=== PATIENT | male | born 1985 | race Hispanic/Latino ===

== ENCOUNTER 2023-10-01 15:45 | Emergency (ER) | payer OTHER, BC, SELFPAY ==
[2023-10-01 16:09] VITALS: BP 135/94
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
[2023-10-01] MEDS: MOTRIN 400 MG PO (17:17)
== END 2023-10-01 17:22 | disposition home or self-care (01) ==
LOC: EMR 15:45
PROVIDERS: EMERGENCY PHYSICIAN Student in an Organized Health Care Education/Training Program
DX: S80.12XA Contusion of left lower leg, initial encounter (principal); V89.2XXA Person injured in unspecified motor-vehicle accident, traffic, initial encounter; R03.0 Elevated blood-pressure reading, without diagnosis of hypertension
CPT/HCPCS: 99283

== ENCOUNTER 2025-01-12 23:26 | Inpatient (IN) | payer BC, SELFPAY ==
[2025-01-12 17:52] VITALS: BP 137/80
[2025-01-12 20:46] VITALS: BMI 29.3
[2025-01-12 20:54] LABS: % Basophils 0.4 % (0-2); % Eosinophils 1.3 % (0-6); % Immature Granulocytes 0.2 % (0-0.5); % Lymphocytes 24.1 % (20.5-51.1); % Monocytes 7.7 % (1.7-9.3); % Neutrophils 66.3 % (42.2-75.2); Absolute Eosinophils 0.1 10^3/uL (0-0.7); Absolute Monocytes 0.6 10^3/uL (0.1-0.6); Absolute Neutrophils 5.4 10^3/uL (1.4-6.5); Hematocrit 41.8 % (39.0-52.0); Hemoglobin 14.7 g/dL (13.0-18.0); Mean Corp Hgb Conc. 35.2 g/dL (33.0-37.0); Mean Corpuscular Hgb 29.3 pg (27.0-31.0); Mean Corpuscular Volume 83.3 fL (80.0-94.0); Mean Platelet Volume 9.4 fL (7.4-10.4); Nucleated Red Blood Cells % 0 % (-); Platelet Count 247 10^3/uL (130-400); Red Blood Cell Count 5.02 10^6/uL (4.70-6.10); Red Cell Dist. Width 12.8 % (11.5-14.5); White Blood Cell Count 8.2 10^3/uL (4.8-10.8)
[2025-01-12 21:06] LABS: ALT (SGPT) 19 U/L (0-50); AST (SGOT) 31 U/L (17-59); Alkaline Phosphatase 77 U/L (38-126); Blood Urea Nitrogen 9 mg/dl (9-20); Calcium 9.5 mg/dl (8.4-10.2); Carbon Dioxide 25 mmol/L (22-30); Chloride 105 mmol/L (98-107); Estimated Creatinine Clearance 103 ml/min; Glucose 100 mg/dl (70-99); Potassium 4.7 mmol/L (3.5-5.1); Sodium 138 mmol/L (135-145); Total Bilirubin 0.5 mg/dl (0.2-1.3); Total Protein 8.1 g/dl (6.3-8.2); eGFR > 60.00
[2025-01-12] MEDS: VANCOCIN 540 MG IV (21:37)
--- NOTE | 2025-01-12 21:54 | ED.SKININJ ---
HPI-Injury
General
Chief Complaint: Skin Problem
Source: patient
Exam Limitations: none
Time Seen by Provider: 01/12/25 20:03
Nursing documentation reviewed up to this point in time: agreed with
History of Present Illness-Injury
Is this injury a work related problem?: No
Is pt an associate of [facility]?: No
Initial Injury comments:
Patient to ED for eval of skin abscesses on right dorsal middle finger and left lateral elbow Symptoms started approx 1 week ago. States he squeezed them and they became worse. He was placed on Keflex and Bactrim by PCP 2 days ago. States the
redness o on right hand has decreased but the ascesses continue to grow. Now drainging. Denies fever/chlls. Brought self to ED for eval.
Past History
Past History
ED Past Medical History: None
Review of Systems
Review of Systems
Allergies reviewed?: Yes
All Other Systems: ROS reviewed and negative except as documented in HPI and ROS
Constitutional: Reports no symptoms
EENT: Reports no symptoms
Respiratory: Reports no symptoms
Cardiac: Reports no symptoms
ABD/GI: Reports no symptoms
Musculoskeletal: Reports no symptoms
Skin: Reports other (skin abscess left lateral elbow and right dorsal 3rd finger.)
Neurological: Reports no symptoms
Psychiatric: Reports no symptoms
Skin Exam
Abscess
Right Dorsal Third Finger:
Description of abscess: draining
Surrounding skin:: inflammed at abscess site
Left Lateral Elbow:
Description of abscess: draining
Surrounding skin:: inflammed at abscess site
Phy Exam
General Physical Exam
General Presentation: well appearing and no apparent distress
General age: appears stated age
General Skin: warm and dry
General Habitus: normal
General Mental: alert
Musculoskeletal Exam
Musculoskeletal Exam: full ROM and neuro vasc intact
Skin Exam
Skin Exam: normal color, warm/dry and no rash
Psychiatric Exam
Psychiatric Exam: normal mood/affect
Course
Orders/Labs/Results
Orders:
Orders
01/12/25 20:17
Elbow, Left [CR Elbow - Left Min 3 Views ] Urgent
Comment:
Reason For Exam: cellulitis
Finger(s)/Thumb 2 View Rt [CR Finger(s)/thumb Min 2 Vw Rt] Urgent
Comment:
Reason For Exam: abscess/cellulitis
01/12/25 20:22
Vancomycin [Vancocin] 2,000 mg 0.9% Sodium Chloride 500 ml [Nss] 500 ml IV NOW
01/12/25 20:41
Complete Blood Count/With Diff Urgent
Comprehensive Metabolic Panel Urgent
Wound Culture [Wound/Abscess/Other Culture] Urgent
EMILIANA Source: Elbow
Specimen Description: Left
Date Specimen was Collected: 01/12/25
Time Specimen was Collected: 20:27
Wound Culture [Wound/Abscess/Other Culture] Urgent
EMILIANA Source: Finger
Specimen Description: Right
Date Specimen was Collected: 01/12/25
Time Specimen was Collected: 20:27
01/12/25 22:58
Admit/Transfer Patient As Directed
Co-Sign Provider:
Level of Care: Inpatient admission
Assign to:: Medical/Surgical
Physician / Group: [facility]
Diagnosis: Abscess / Cellulitis
Reason for Hospitalization: Abscess / Cellulitis
Expected length of stay greater than two midnights?: Yes
ELOS- Estimated Length of Stay in days: 2
I certify the patient meets the requirements for IP care: Yes
PRN Pain Medication Management As Directed
May give lesser potent ordered pain med per pt: Yes
preference::
Protocol:: Medication orders for pain may be administered in a
manner that supports deferring to patient preference
when the pt is:
- Requesting an ordered lesser potent pain medication.
Least to most potent pain medications are defined
as: acetaminophen < NSAID < tramadol < opioids
(morphine, oxycodone, hydromorphone).
- Requesting a lesser dose of the same medication IF
ORDERED.
- Requesting a less intrusive route of administration
if both routes are prescribed by the provider (PO <
IV).
01/12/25 22:59
Code Status As Directed
Resuscitation Status: Full Code
01/12/25 23:00
Flush (0.9% Sodium Chloride) [Flush (Nss)] See Dose Instructions IV PER PROTOCOL
01/13/25 01:56
Acetaminophen [Tylenol] 650 mg PO Q4HPRN PRN
Ketorolac [Toradol] 15 mg IV Q6HPRN PRN
01/13/25 01:56
ORTHOPEDIC CONSULT Routine
Consulting Provider: Cedric Neumann
Was physician already notified: Yes
Reason for consult: Abscess / Cellulitis
Activity As Directed
Activity Level: Ambulate
I/O [Intake/ Output] As Directed
Frequency: Per unit guidelines
Pneumatic Compression Sleeves As Directed
Type: Knee high
Vital Signs As Directed
Frequency: Per unit guidelines
Oxygen Therapy [O2 Therapy] [RESP] Routine
Titrate/Wean O2 to maintain O2 sat greater than (%): 94
DX Deep Vein Thrombosis Video Routine
01/13/25 02:31
Blood Culture Q30M
EMILIANA Source: Blood/Venous
Specimen Description:
01/13/25 03:23
Blood Culture Q30M
EMILIANA Source: Blood/Venous
Specimen Description:
01/13/25 Breakfast
Regular
At Your Request: Full Participation
01/13/25 08:49
Basic Metabolic Panel IN AM
Complete Blood Count/No Diff IN AM
Abnormal Lab Results
01/12/25
20:41
Glucose 100 H mg/dl
(70-99)
01/12/25 20:41
01/12/25 20:41
Vital Signs
Initial and Last Documented VS:
Initial Vital Signs
Temp Pulse Resp BP Pulse Ox
98.4 F 82 18 137/80 97
01/12/25 17:52 01/12/25 17:52 01/12/25 17:52 01/12/25 17:52 01/12/25 17:52
Last Documented Vital Signs
Temp Pulse Resp BP Pulse Ox
98.2 F 63 18 121/73 97
01/14/25 15:20 01/14/25 15:20 01/14/25 15:20 01/14/25 15:20 01/14/25 15:20
*Radiology
Radiology exam reviewed: radiology read reviewed
*Pulse Oximetry
Patient hypoxic: no
*Critical Care Note
Total Time (30-74mins, 75-104mins- exclusive of procedures): Not Applicable
ED Attending Note
-
Portions of this chart may have been created with voice recognition software.� Occasional wrong word or��sound alike� substitutions may have occurred due to the inherent limitations of voice recognition software.
Discharge Plan
Departure
Patient Disposition: Admit
Date of Disposition: 01/12/25
Time of Disposition: 21:59
Presentation/result/management discussed w/ accepting MD/DO: Hospitalist
Patient with high blood pressure during this ER visit?: No
Condition: Fair
Covid-19: Not Applicable
Discharge Problem:
Abscess of skin
Interventions
Interventions:
*Risk Screen - Suicide Last Done: 01/13/25 02:23
*General Assessment Last Done: 01/12/25 17:52
*Neglect/Abuse Screening Last Done: 01/12/25 17:52
*ED- Fall Risk Assessment Last Done: 01/13/25 01:45
*ED COVID-19 Vaccine History Last Done: 01/13/25 02:23
*Nursing Disposition Last Done: 01/13/25 01:45
ED-Skin Assessment Last Done: 01/12/25 23:10
Discharge Date and Time
Discharge Date/Time: 01/13/25 01:45
[2025-01-12 22:49] VITALS: BP 115/70
--- NOTE | 2025-01-12 23:05 | HPS.HSE ---
Family Physician
-
Family Physician: Naseem Valdes
Chief Complaint
-
Abscesses
History of Present Illness
Patient is a 39y M with no significant PMH who presents to ED complaining of pain, swelling and discharge from the R 3rd finger and the L elbow. Patient states that he initially developed small 'pimples' in these areas on Wednesday. Areas were
itchy and swollen and progressed rapidly to become more swollen and painful. Patient squeezed the lesions and obtained some clear / bloody drainage. They have since become even more swollen and painful. Pos drainage of bloody material.
Patient denies any systemic complaints such as fevers / chills / etc.
He denies any prior history of skin abscesses, etc.
Patient was seen by his PCP two days ago and started on Bactrim and Keflex. He has noted no improvement thus far with these medications.
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 He otherwise does not known of any injuries to the affected areas or other exposures.
Medical History
Past Medical History
Past Medical History: Reports None
Past Surgical History: Reports None
Social History
Tobacco: Non-smoker
Alcohol: None
Drug: None
Family History
Family History: Other (Mother: DM Father: CHF)
Allergies / Home Medications
Allergies reflects when Allergies were last updated in [employer].
Home Medications with original date entered in [employer]
Allergy/Medication List:
Allergies
Allergy/AdvReac Type Severity Reaction Status Date / Time
No Known Allergies Allergy Verified 10/01/23 16:15
Home Medications
cephalexin 500 mg capsule 500 mg PO BID 01/12/25
ibuprofen 800 mg tablet 800 mg PO Q8HPRN PRN MILD PAIN 01/12/25
sulfamethoxazole 800 mg-trimethoprim 160 mg tablet (Bactrim DS) 1 tab PO BID 01/12/25
Review of Systems
-
History Source: Patient
A 12 point ROS was completed and negative except as noted: Yes
Constitutional: Denies Fever or Chills
Respiratory: Denies Cough or Trouble Breathing
Cardiac: Denies Chest Pain or Palpitations
Abdomen/GI: Denies Abdominal Pain, Nausea, Vomiting or Diarrhea
: Denies Dysuria or Frequency
Musculoskeletal: Reports Joint Pain and Joint Swelling; Denies Edema
Neurological: Denies Dizzy or Headache
Physical Exam
Vital Signs
Vital Signs
Temp Pulse Resp BP Pulse Ox
98.4 F 67 15 115/70 97
01/12/25 17:52 01/12/25 22:49 01/12/25 22:49 01/12/25 22:49 01/12/25 22:49
Physical Exam
General: Other (39y M in no acute distress.)
HEENT: Moist mucous membranes
Respiratory: Clear; No Wheezes, Rales or Rhonchi
Cardiac: S1/S2 and Regular Rhythm; No Murmur
GI: Soft, Non Tender, Non Distended and Normal Bowel Sounds
Musculoskeletal: Other (Swelling / erythema / edema / serosanguinous drainage from R 3rd PCP joint. Similar / less severe skin changes lateral aspect of the L elbow. Normal ROM of the elbow. Decreased ROM R 3rd finger due to swelling.)
Neuro: AO x 3
Laboratory Results
-
01/12/25 20:41
01/12/25 20:41
Laboratory Results
Total Bilirubin 0.5 mg/dl (0.2-1.3) 01/12/25 20:41
AST 31 U/L (17-59) 01/12/25 20:41
ALT 19 U/L (0-50) 01/12/25 20:41
Alkaline Phosphatase 77 U/L (38-126) 01/12/25 20:41
Impression/Plan
-
A/P: Patient is a 39y M with no significant PMH who presents to ED complaining of pain, swelling and drainage from skin lesions on the R hand and L elbow.
Cellulitis / Abscesses
- Admit for further evaluation and treatment.
- No response to outpatient abx.
- Continue IV Vancomycin for now.
- Supportive care including pain control.
- Ortho evaluation for additional recommendations.
- Follow for clinical improvement.
DVT Prophylaxis: SCDs
Code Status: Full
[2025-01-12 23:32] VITALS: BP 120/73
[2025-01-13 02:00] VITALS: BP 138/82; BMI 30.8
[2025-01-13] MEDS: TORADOL 15 MG IV ×2 (02:44→10:11)
[2025-01-13 08:10] VITALS: BP 124/53
[2025-01-13 09:03] LABS: Hematocrit 40.2 % (39.0-52.0); Hemoglobin 13.8 g/dL (13.0-18.0); Mean Corp Hgb Conc. 34.3 g/dL (33.0-37.0); Mean Corpuscular Hgb 29.3 pg (27.0-31.0); Mean Corpuscular Volume 85.4 fL (80.0-94.0); Mean Platelet Volume 9.2 fL (7.4-10.4); Platelet Count 227 10^3/uL (130-400); Red Blood Cell Count 4.71 10^6/uL (4.70-6.10); Red Cell Dist. Width 12.7 % (11.5-14.5); White Blood Cell Count 5.6 10^3/uL (4.8-10.8)
--- NOTE | 2025-01-13 09:30 | PHA.VAN.IN ---
Assessment
- Assessment
Renal Function: Unknown baseline
AUC Dosing Plan
- Empiric Dosing
Initial / Loading Dose: 2000MG 01/12
Maintenance Regimen: 1000MG Q12H
Estimated AUC (mcg*h/mL): 490
Estimated Peak (mcg*h/mL): 31.6
Estimated Trough (mcg/ml): 12.1
Estimated Half Life (H): 7.9
- Monitoring
No levels ordered at this time: CONSIDER NEXT FEW DAYS
MRSA Screen: Ordered per protocol
Pharmacokinetics Vancomycin I
- -
Patient Age: 39
Patient Sex: Male
Vancomycin Day #: 1
Indication: Skin And Soft Tissue
Requesting Provider: Dr. Granados
Pertinent Antimicrobial Allergies:
nkda
Height / Weight:
Height 5 ft 4 in
Actual Weight 81.306 kg
- Vital Signs / Lab Results
Temp Pulse Resp BP Pulse Ox
98.1 F 66 18 124/53 95
01/13/25 08:10 01/13/25 08:10 01/13/25 08:10 01/13/25 08:10 01/13/25 08:10
Lab Results - Hematology
01/12/25 01/13/25
20:41 08:49
WBC 8.2 5.6
Lab Results - Chemistry
01/12/25
20:41
BUN 9
Creatinine 0.9
Estimated Creat Clear 103
Albumin 5.0
[2025-01-13 09:36] LABS: Blood Urea Nitrogen 10 mg/dl (9-20); Calcium 9.2 mg/dl (8.4-10.2); Carbon Dioxide 24 mmol/L (22-30); Chloride 105 mmol/L (98-107); Estimated Creatinine Clearance 105 ml/min; Glucose 163 mg/dl (70-99); Potassium 4.2 mmol/L (3.5-5.1); Sodium 139 mmol/L (135-145); eGFR > 60.00
--- NOTE | 2025-01-13 09:57 | W.PN.UPDATE ---
Update Note
Progress Note Update
Full orthopedic consult dictated: Patient seen with Dr. Neumann.
Dx: Right middle finger infection/cellulitis and left elbow infection/cellulitis
Plan: Recommend continue with antibiotics, dilute Hibiclens soaks right middle finger, K-pad left elbow and observation for now. He will be n.p.o. after midnight and reevaluate in the morning.
--- NOTE | 2025-01-13 10:20 | CM ---
Met w/ patient, initial assessment completed. Patient is a 39y M with no significant PMH who presents to ED complaining of pain, swelling and discharge from the R 3rd finger and the L elbow.
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 Independent w/ ambulating and ADLs, no DME identified. No SNF/HC hx reported.
Address, point of contact and insurance verified
PCP: Naseem Valdes
Pharmacy: [facility]
CM will cont to follow for d/c planning
Plan: Home, no needs
--- NOTE | 2025-01-13 11:05 | W.PN.HOSP.TC ---
Today's Communication/Plan
-
Continue IV vancomycin
Follow-up MRSA
Check A1c
N.p.o. at midnight for possible I&D
Assessment / Plan
Assessment / Plan
#Purulent cellulitis with abscesses
-Suspicion for MRSA; presented with cellulitis and abscess of the third digit right hand and left elbow
-Failed outpatient therapy with Keflex and Bactrim likely due to underlying abscesses
-Was started on vancomycin here, seen by orthopedics who started Hibiclens soak and K-pad
-Blood cultures x 2, MRSA screen, wound and abscess cultures ordered with results pending
-Will continue IV vancomycin, follow-up MRSA screen, trend CBC and temperature curve
-Continue with supportive measures per orthopedics, n.p.o. at midnight for possible I&D tomorrow
-Continue with as needed analgesics and antipyretics
-Check A1c for consideration of underlying polymicrobial infection
DVT prophylaxis: SCDs
Diet: Regular with n.p.o. at midnight
CODE STATUS: Full code
Anticipated Discharge: 24 - 48 hours
Subjective/Interval History
-
Date of Service: January 13, 2025
Seen and examined at the bedside. No acute events reported overnight. AFVSS this morning
No leukocytosis or fevers today. Patient was walking around the room at time of my eval
Denies any fevers or chills, states he has never had history of infections. Denies any other complaints
Objective Data
-
Labs:
Laboratory Results
01/13/25
08:49
WBC 5.6
Hgb 13.8
Hct 40.2
Plt Count 227
Sodium 139
Potassium 4.2
Chloride 105
Carbon Dioxide 24
BUN 10
Creatinine 0.9
Glucose 163 H
Calcium 9.2
Vital Signs:
Vital Signs
Temp Pulse Resp BP Pulse Ox
98.1 F 66 18 124/53 95
01/13/25 08:10 01/13/25 08:10 01/13/25 08:10 01/13/25 08:10 01/13/25 08:10
Review of Systems
-
History Source: Patient
All other systems: Reviewed and negative
Physical Exam
-
General: Well Developed, Well Nourished, No Apparent Distress and Comfortable
HEENT: Normocephalic, Atraumatic, Moist Mucous Membranes and Anicteric
Respiratory: Clear to Auscultation and Non Labored Respirations; Negative Accessory Resp Muscle Use
Cardiac: Regular Rhythm and S1/S2; Negative Murmur, Rub or Gallop
GI: Soft, Nontender, Nondistended, Normal Bowel Sounds and No Hepatosplenomegaly
Musculoskeletal: No Clubbing, No Cyanosis and No Edema
Skin: Warm, Dry and Lesions (Third digit right hand -fluctuant lesion with trace purulence and small amount of oozing. Left elbow with fluctuant lesion and purulent appearing cap)
Neuro: AO x 3 and Nonfocal/Grossly Intact
Psych: Calm
Data Reviewed
-
Labs: Labs Reviewed by me, Discussed with Physician (ortho) and Discussed with Patient
[2025-01-13 11:06] LABS: Glycohemoglobin (HgbA1c) 5.3 % (4.0-5.6)
[2025-01-13 11:30] LABS: Erythrocyte Sed Rate 14 mm/hour (0-20)
[2025-01-13 16:16] VITALS: BP 129/78
[2025-01-13] MEDS: VANCOCIN 200 IV (18:11)
[2025-01-13] MEDS: MELATONIN 5 MG PO (21:55)
[2025-01-13 23:23] VITALS: BP 103/57
[2025-01-14] MEDS: VANCOCIN 200 IV ×2 (06:07→18:15)
[2025-01-14 07:45] VITALS: BP 109/74
[2025-01-14 07:59] LABS: % Basophils 0.9 % (0-2); % Eosinophils 5.8 % (0-6); % Immature Granulocytes 0.5 % (0-0.5); % Monocytes 11.9 % (1.7-9.3); % Neutrophils 39.9 % (42.2-75.2); Absolute Eosinophils 0.3 10^3/uL (0-0.7); Absolute Lymphocytes 1.8 10^3/uL (1.2-3.4); Absolute Monocytes 0.5 10^3/uL (0.1-0.6); Absolute Neutrophils 1.7 10^3/uL (1.4-6.5); Hematocrit 41.3 % (39.0-52.0); Hemoglobin 14.1 g/dL (13.0-18.0); Mean Corp Hgb Conc. 34.1 g/dL (33.0-37.0); Mean Corpuscular Hgb 29.3 pg (27.0-31.0); Mean Corpuscular Volume 85.7 fL (80.0-94.0); Mean Platelet Volume 9.6 fL (7.4-10.4); Nucleated Red Blood Cells % 0 % (-); Platelet Count 241 10^3/uL (130-400); Red Blood Cell Count 4.82 10^6/uL (4.70-6.10); Red Cell Dist. Width 12.6 % (11.5-14.5); White Blood Cell Count 4.3 10^3/uL (4.8-10.8)
[2025-01-14 08:25] LABS: Blood Urea Nitrogen 12 mg/dl (9-20); Calcium 9.3 mg/dl (8.4-10.2); Carbon Dioxide 25 mmol/L (22-30); Chloride 107 mmol/L (98-107); Estimated Creatinine Clearance 118 ml/min; Glucose 109 mg/dl (70-99); Potassium 4.5 mmol/L (3.5-5.1); Sodium 140 mmol/L (135-145); eGFR > 60.00
--- NOTE | 2025-01-14 09:24 | PHA.VAN.FU ---
Addendum entered and electronically signed by Sariah Horn, [facility] 01/14/25 10:54:
Prescriber now Dr Machuca
Original Note:
Vancomycin Assessment / Plan
- Assessment
Renal Function: Stable
WBC's are: Stable
In the past 24 hrs, patient has been: Afebrile
- Dosing Plan
Continue: vanc 1000mg q12
- Monitoring Plan
No level(s) ordered at this time: consider in the upcoming days
- Follow Up
Pharmacy will continue to follow.
Vancomycin Follow UP
- -
Patient Age: 39
Patient Sex: Male
Vancomycin Day #: 1
Indication: Skin And Soft Tissue (abscess on R hand and elbow)
Requesting Provider: Dr. Granados
Pertinent Antimicrobial Allergies:
nkda
Height / Weight:
Height 5 ft 4 in
Actual Weight 81.306 kg
Pertinent Past Medical History: possible I&D 01/14
- Vital Signs / Lab Results
Temp Pulse Resp BP Pulse Ox
98.2 F 59 16 109/74 97
01/14/25 07:45 01/14/25 07:45 01/14/25 07:45 01/14/25 07:45 01/14/25 07:45
Lab Results - Hematology
01/12/25 01/13/25 01/14/25
20:41 08:49 06:54
WBC 8.2 5.6 4.3 L
Lab Results - Chemistry
01/12/25 01/13/25 01/14/25
20:41 08:49 06:54
BUN 9 10 12
Creatinine 0.9 0.9 0.8
Estimated Creat Clear 103 105 118
Albumin 5.0
Microbiology Results
01/13/25 03:24 MRSA Screen - Final
Nose No Methicillin Resistant Staphylococcus aureus isolated.
01/13/25 03:23 Blood Culture - Preliminary
Blood/Venous No Growth in 24 hours- Final report to follow
01/13/25 02:31 Blood Culture - Preliminary
Blood/Venous No Growth in 24 hours- Final report to follow
01/12/25 20:41 Gram Stain - Preliminary
Finger - Right
01/12/25 20:41 Gram Stain - Preliminary
Elbow - Left
--- NOTE | 2025-01-14 10:31 | W.PN.HOSP.TC ---
Today's Communication/Plan
-
Continue IV vancomycin and add Flagyl for anaerobic coverage
Consideration of I&D per orthopedics
Assessment / Plan
Assessment / Plan
#Purulent cellulitis with abscesses
-Suspicion for MRSA; presented with cellulitis and abscess of the third digit right hand and left elbow
-Failed outpatient therapy with Keflex and Bactrim likely due to underlying abscesses
-Was started on vancomycin here, seen by orthopedics who started Hibiclens soak and K-pad
-Blood cultures x 2, MRSA screen, wound and abscess cultures ordered with results pending
-A1c came back at 5.3%; MRSACx from wound (+); clinically improving on vancomycin
-Continue vancomycin and add Flagyl for anaerobic coverage, trend CBC and temp
-Continue with supportive measures per orthopedics,
-Continue with as needed analgesics and antipyretics
-Consideration of I&D per orthopedics
DVT prophylaxis: SCDs
Diet: NPO pending ortho
CODE STATUS: Full code
Anticipated Discharge: 24 - 48 hours
Subjective/Interval History
-
Date of Service: January 14, 2025
Seen and examined at the bedside. No acute events reported overnight. AFVSS
Labs are stable. Improvement to elbow abscess and mild improvement to third digit abscess of right hand. Denies fevers or worsening pain
Denies any new complaints as of this morning
Objective Data
-
Labs:
Laboratory Results
01/14/25
06:54
WBC 4.3 L
Hgb 14.1
Hct 41.3
Plt Count 241
Sodium 140
Potassium 4.5
Chloride 107
Carbon Dioxide 25
BUN 12
Creatinine 0.8
Glucose 109 H
Calcium 9.3
Vital Signs:
Vital Signs
Temp Pulse Resp BP Pulse Ox
98.2 F 59 16 109/74 97
01/14/25 07:45 01/14/25 07:45 01/14/25 07:45 01/14/25 07:45 01/14/25 07:45
I&O
01/13/25 01/14/25 01/15/25
06:59 06:59 06:59
Intake Total 960 / 960
Balance 960 / 960
Review of Systems
-
History Source: Patient
All other systems: Reviewed and negative
Physical Exam
-
General: Well Developed, Well Nourished, No Apparent Distress and Comfortable
HEENT: Normocephalic, Atraumatic, Moist Mucous Membranes and Anicteric
Respiratory: Clear to Auscultation and Non Labored Respirations; Negative Accessory Resp Muscle Use
Cardiac: Regular Rhythm and S1/S2; Negative Murmur, Rub or Gallop
GI: Soft, Nontender, Nondistended and Normal Bowel Sounds
Musculoskeletal: No Clubbing, No Cyanosis and No Edema
Skin: Warm, Dry and Lesions (Left elbow: Improving fluctuant lesion with mild oozing. Right hand: Third digit with fluctuant lesion improved erythema)
Neuro: AO x 3, Nonfocal/Grossly Intact and Central Nerve's Intact; Negative Tremors
Hematologic / Lymphatic: No Lymphadenopathy
Psych: Calm
Data Reviewed
-
Labs: Labs Reviewed by me and Discussed with Patient
[2025-01-14 11:00] LABS: Erythrocyte Sed Rate 15 mm/hour (0-20)
--- NOTE | 2025-01-14 11:17 | W.PN.UPDATE ---
Update Note
Progress Note Update
Patient seen and examined this AM. AVSS. Right third finger with less swelling. Some purulence able to be expressed and when mechanically pushing on the wound, it opened and purulent loculated material was expressed. Patient then soaked. Elbow
somewhat improved today. Cultures positive for MRSA. Continue soaks and IV antibiotics. Will discuss with hand surgery tomorrow.
[2025-01-14] MEDS: FLAGYL 500 MG 100 IV ×2 (11:52→19:59)
[2025-01-14 15:20] VITALS: BP 121/73
[2025-01-14] MEDS: FLUSH (NSS) 1 FLUSH IV (18:16)
[2025-01-14] MEDS: MELATONIN PO ×2 (21:33→22:00)
[2025-01-14 23:07] VITALS: BP 143/94
[2025-01-15] MEDS: FLAGYL 500 MG 100 IV ×2 (03:51→11:45)
[2025-01-15] MEDS: VANCOCIN 200 IV (06:18)
[2025-01-15 07:22] VITALS: BP 122/75
[2025-01-15 09:21] LABS: % Basophils 0.8 % (0-2); % Eosinophils 4.6 % (0-6); % Immature Granulocytes 0.8 % (0-0.5); % Lymphocytes 36.7 % (20.5-51.1); % Monocytes 7.8 % (1.7-9.3); % Neutrophils 49.3 % (42.2-75.2); Absolute Eosinophils 0.2 10^3/uL (0-0.7); Absolute Lymphocytes 1.8 10^3/uL (1.2-3.4); Absolute Monocytes 0.4 10^3/uL (0.1-0.6); Absolute Neutrophils 2.4 10^3/uL (1.4-6.5); Hematocrit 42.1 % (39.0-52.0); Hemoglobin 14.3 g/dL (13.0-18.0); Mean Corpuscular Hgb 29.2 pg (27.0-31.0); Mean Corpuscular Volume 86.1 fL (80.0-94.0); Mean Platelet Volume 9.6 fL (7.4-10.4); Nucleated Red Blood Cells % 0 % (-); Platelet Count 283 10^3/uL (130-400); Red Blood Cell Count 4.89 10^6/uL (4.70-6.10); Red Cell Dist. Width 12.6 % (11.5-14.5); White Blood Cell Count 4.8 10^3/uL (4.8-10.8)
[2025-01-15 09:32] LABS: Erythrocyte Sed Rate 16 mm/hour (0-20)
[2025-01-15 09:39] LABS: Blood Urea Nitrogen 11 mg/dl (9-20); Calcium 9.3 mg/dl (8.4-10.2); Carbon Dioxide 28 mmol/L (22-30); Chloride 106 mmol/L (98-107); Estimated Creatinine Clearance > 125 ml/min; Glucose 102 mg/dl (70-99); Potassium 4.1 mmol/L (3.5-5.1); Sodium 143 mmol/L (135-145); eGFR > 60.00
--- NOTE | 2025-01-15 10:05 | PHA.VAN.FU ---
Vancomycin Assessment / Plan
- Assessment
Renal Function: Stable
WBC's are: WNL
In the past 24 hrs, patient has been: Afebrile
Concomitant Antimicrobials: metronidazole
- Dosing Plan
Adjust Regimen to: Vanc 1250mg Q12H starting at 1800
New Regimen Predicts: AUC (514), Peak (35.4), Trough (11.4)
SCR trending down
Given age - will increase dosing as patient may require increased dosing to achieve therapeutic levels
- Monitoring Plan
No level(s) ordered at this time: consider levels in next few days
- Follow Up
Pharmacy will continue to follow.
Vancomycin Follow UP
- -
Patient Age: 39
Patient Sex: Male
Vancomycin Day #: 2
Indication: Skin And Soft Tissue
Requesting Provider: Dr. Granados
Pertinent Antimicrobial Allergies:
NKDA
Height / Weight:
Height 5 ft 4 in
Actual Weight 81.306 kg
Pertinent Past Medical History: BMI ~31
- Vital Signs / Lab Results
Temp Pulse Resp BP Pulse Ox
98.8 F 60 18 122/75 98
01/15/25 07:22 01/15/25 07:22 01/15/25 07:22 01/15/25 07:22 01/15/25 07:22
Lab Results - Hematology
01/12/25 01/13/25 01/14/25
20:41 08:49 06:54
WBC 8.2 5.6 4.3 L
01/15/25
08:00
WBC 4.8
Lab Results - Chemistry
01/12/25 01/13/25 01/14/25
20:41 08:49 06:54
BUN 9 10 12
Creatinine 0.9 0.9 0.8
Estimated Creat Clear 103 105 118
Albumin 5.0
01/15/25
08:00
BUN 11
Creatinine 0.7
Estimated Creat Clear > 125
Albumin
Microbiology Results
01/12/25 20:41 Wound Culture - Final
Elbow - Left Staph aureus MRSA
Gram Stain - Final
01/12/25 20:41 Wound Culture - Final
Finger - Right Staph aureus MRSA
Gram Stain - Final
01/13/25 03:23 Blood Culture - Preliminary
Blood/Venous No Growth in 48 hours- Final report to follow
01/13/25 02:31 Blood Culture - Preliminary
Blood/Venous No Growth in 48 hours- Final report to follow
01/13/25 03:24 MRSA Screen - Final
Nose No Methicillin Resistant Staphylococcus aureus isolated.
--- NOTE | 2025-01-15 12:27 | W.PN.HOSP.TC ---
Today's Communication/Plan
-
Continue IV vancomycin
N.p.o. at midnight
Possible I&D tomorrow morning
Assessment / Plan
Assessment / Plan
#Purulent cellulitis with abscesses
#MRSA positive wound cultures
-Suspicion for MRSA; presented with cellulitis and abscess of the third digit right hand and left elbow
-Failed outpatient therapy with Keflex and Bactrim likely due to underlying abscesses
-Was started on vancomycin here, seen by orthopedics who started Hibiclens soak and K-pad
-Blood cultures x 2, MRSA screen, wound and abscess cultures ordered with results pending
-A1c came back at 5.3%; MRSACx from wound (+); clinically improving on vancomycin
-Continue vancomycin, trend CBC and temperature curve with inflammatory marker
-Continue with supportive measures; orthopedics to discuss with hand surgery today
-Continue with as needed analgesics and antipyretics
-Consideration of I&D per orthopedics
DVT prophylaxis: SCDs
Diet: NPO at midnight
CODE STATUS: Full code
Anticipated Discharge: 24 - 48 hours
Subjective/Interval History
-
Date of Service: January 15, 2025
Seen and examined at the bedside. No acute events reported overnight. AFVSS this morning
Left elbow abscess with significant improvement, third digit on right hand abscess with mild improvement
Labs stable. Ortho to speak with hand surgery today about approach to treatment
Objective Data
-
Labs:
Laboratory Results
01/15/25
08:00
WBC 4.8
Hgb 14.3
Hct 42.1
Plt Count 283
Sodium 143
Potassium 4.1
Chloride 106
Carbon Dioxide 28
BUN 11
Creatinine 0.7
Glucose 102 H
Calcium 9.3
Vital Signs:
Vital Signs
Temp Pulse Resp BP Pulse Ox
98.8 F 60 18 122/75 98
01/15/25 07:22 01/15/25 07:22 01/15/25 07:22 01/15/25 07:22 01/15/25 07:22
I&O
01/14/25 01/15/25 01/16/25
06:59 06:59 06:59
Intake Total 960 / 960 1700 / 1700
Balance 960 / 960 1700 / 1700
Review of Systems
-
History Source: Patient
All other systems: Reviewed and negative
Physical Exam
-
General: Well Developed, Well Nourished, No Apparent Distress and Comfortable
HEENT: Normocephalic, Atraumatic, Moist Mucous Membranes and Anicteric
Respiratory: Clear to Auscultation and Non Labored Respirations; Negative Accessory Resp Muscle Use
Cardiac: Regular Rhythm and S1/S2; Negative Murmur, Rub or Gallop
GI: Soft, Nontender, Nondistended and Normal Bowel Sounds
Musculoskeletal: No Clubbing, No Cyanosis and No Edema
Skin: Warm, Dry and Lesions (Right hand third digit: Fluctuant lesion with some oozing. Left elbow with improving lesion, no significant fluctuance); Negative Rash
Neuro: AO x 3 and Nonfocal/Grossly Intact
Psych: Calm
Data Reviewed
-
Labs: Labs Reviewed by me and Discussed with Patient
--- NOTE | 2025-01-15 12:34 | WOUNDNOTE ---
R 3RD FINGER
--- NOTE | 2025-01-15 12:35 | WOUNDNOTE ---
NAZIA RN NOTE: Patient admitted with abscess of skin, denies PMH. Reviewed Dr. Neumann's note, patient doing soaks as ordered then dry dressing inbtw. Both R 3rd finger and L elbow now with scant drainage, base red, no induration. + MRSA on wound
culture. Dressings changed using adaptic and dry dressing. Teaching done with patient regarding wound care and bathing precautions with family. Will sign off unless needed.
--- NOTE | 2025-01-15 13:38 | W.PN.UPDATE ---
Update Note
Progress Note Update
Patient seen and examined
He has excellent ROM of the right middle finger
No expressible purulence. Minimal surrounding erythema or warmth
No surgical I&D is needed
I'm ok with switching to oral abx
Continue with warm water Chlorhexidine soaks.
Follow up in the office in 5-7 days
--- NOTE | 2025-01-15 14:51 | CM ---
CM reviewed chart, patient seen bedside, no surgical I&D needed at this time. Patient remains on IV antibiotics. Patient inquiring about billing, will direct patient to billing contact. CM will continue to follow for all discharge planning needs.
Plan; home no needs likely
[2025-01-15 15:01] VITALS: BP 122/78
[2025-01-15] MEDS: VANCOCIN 275 MG IV (18:24)
[2025-01-15] MEDS: MELATONIN PO (22:17)
[2025-01-15 23:01] VITALS: BP 139/84
[2025-01-16] MEDS: VANCOCIN 275 MG IV (05:36)
[2025-01-16 07:27] VITALS: BP 116/78
[2025-01-16 07:44] LABS: % Basophils 0.8 % (0-2); % Eosinophils 6.7 % (0-6); % Immature Granulocytes 1.1 % (0-0.5); % Monocytes 9.1 % (1.7-9.3); % Neutrophils 41.3 % (42.2-75.2); Absolute Eosinophils 0.4 10^3/uL (0-0.7); Absolute Immature Granulocytes 0.1 10^3/uL (0-0.05); Absolute Lymphocytes 2.2 10^3/uL (1.2-3.4); Absolute Monocytes 0.5 10^3/uL (0.1-0.6); Absolute Neutrophils 2.2 10^3/uL (1.4-6.5); Hemoglobin 14.2 g/dL (13.0-18.0); Mean Corp Hgb Conc. 33.8 g/dL (33.0-37.0); Mean Corpuscular Hgb 28.8 pg (27.0-31.0); Mean Corpuscular Volume 85.2 fL (80.0-94.0); Mean Platelet Volume 9.2 fL (7.4-10.4); Nucleated Red Blood Cells % 0 % (-); Platelet Count 265 10^3/uL (130-400); Red Blood Cell Count 4.93 10^6/uL (4.70-6.10); Red Cell Dist. Width 12.5 % (11.5-14.5); White Blood Cell Count 5.3 10^3/uL (4.8-10.8)
[2025-01-16 08:00] LABS: Erythrocyte Sed Rate 13 mm/hour (0-20)
[2025-01-16 08:18] LABS: Blood Urea Nitrogen 14 mg/dl (9-20); Calcium 9.3 mg/dl (8.4-10.2); Carbon Dioxide 28 mmol/L (22-30); Chloride 107 mmol/L (98-107); Estimated Creatinine Clearance 118 ml/min; Glucose 101 mg/dl (70-99); Potassium 4.3 mmol/L (3.5-5.1); Sodium 143 mmol/L (135-145); eGFR > 60.00
--- NOTE | 2025-01-16 11:38 | CM ---
CM reviewed chart, patient seen bedside, for discharge today. Patient inquiring about hospital bill, provided with billing contact information. Patient confirms transportation home, no needs. CM will continue to follow for all discharge planning
needs.
Plan; home no needs.
--- NOTE | 2025-01-16 14:04 | W.PN.HOSP.TC ---
Today's Communication/Plan
-
bactrim
f/u ortho in 5-7 days
wound care
F/u PCP within 1 week
Assessment / Plan
Assessment / Plan
General: Well Developed, Well Nourished, No Apparent Distress and Comfortable
HEENT: Normocephalic, Atraumatic, Moist Mucous Membranes and Anicteric
Respiratory: Clear to Auscultation and Non Labored Respirations; Negative Accessory Resp Muscle Use
Cardiac: Regular Rhythm and S1/S2; Negative Murmur, Rub or Gallop
GI: Soft, Nontender, Nondistended and Normal Bowel Sounds
Musculoskeletal: No Clubbing, No Cyanosis and No Edema
Skin: Warm, Dry and Lesions, open - appears to be healting; Left elbow with improving lesion, no significant fluctuance); Negative Rash
Neuro: AO x 3 and Nonfocal/Grossly Intact
Psych: Calm
#Purulent cellulitis with abscesses
#MRSA positive wound cultures
-Suspicion for MRSA; presented with cellulitis and abscess of the third digit right hand and left elbow
-Abx suboptimal likely due to underlying abscesses
-Self drained on 01/15
-NO indication for drainage as per Ortho
-DC on bactrim as sensitive; did not have appropriate course as of yet especially with abscess that was present
-Wound care
More than 30 minutes spent in discharge including
Final examination of the patient
Summarizing hospital stay
Instructions for continuing care to all relevant caregivers
Preparation of discharge records, prescriptions, and referral forms
Total time spent (in minutes): 36
Anticipated Discharge: Today
Subjective/Interval History
-
Date of Service: January 16, 2025
infection appears to have improved, no purulence
Objective Data
-
Labs:
Laboratory Results
01/16/25
07:11
WBC 5.3
Hgb 14.2
Hct 42.0
Plt Count 265
Sodium 143
Potassium 4.3
Chloride 107
Carbon Dioxide 28
BUN 14
Creatinine 0.8
Glucose 101 H
Calcium 9.3
Vital Signs:
Vital Signs
Temp Pulse Resp BP Pulse Ox
98.8 F 58 18 116/78 99
01/16/25 07:27 01/16/25 07:27 01/16/25 07:27 01/16/25 07:27 01/16/25 07:27
I&O
01/15/25 01/16/25 01/17/25
06:59 06:59 06:59
Intake Total 1699 / 0 1929
Balance 1699 / 1699
Review of Systems
-
History Source: Patient
All other systems: Not reviewed unless documented
Data Reviewed
-
Labs: Labs Reviewed by me and Discussed with Patient
--- NOTE | 2025-01-16 14:12 | W.DS.TRANS ---
DC Summary - [employer]
-
Discharge Instructions:
Discharge Diagnosis/Procedures cellulitis with abscess
Blood Work cbc and bmp in 3-5 days with pcp
Instructions: Excuse from school, work, or physical activity - ED discharge instructions
Stand-Alone Forms:
Changes to Home Medications: Yes
Discharge Medications:
DC Medications w/original date entered in [facility]
ibuprofen 800 mg tablet 800 mg PO Q8HPRN PRN MILD PAIN 01/12/25
sulfamethoxazole 800 mg-trimethoprim 160 mg tablet (Bactrim DS) 1 tab PO BID Infection 10 days #20 tabs 01/16/25
Home Medication Changes
sulfamethoxazole 800 mg-trimethoprim 160 mg tablet (Bactrim DS) 1 tab PO BID Infection 10 days #20 tabs 01/16/25
Pending Results: No
[2025-01-16] MEDS: CLARITIN 10 MG PO (14:47)
[2025-01-16 14:59] VITALS: BP 126/93
--- NOTE | 2025-01-16 16:06 | PHA.VAN.FU ---
Vancomycin Assessment / Plan
- Assessment
Renal Function: Stable
WBC's are: WNL
In the past 24 hrs, patient has been: Afebrile
- Dosing Plan
Continue: Vanc 1250mg Q12H
- Monitoring Plan
No level(s) ordered at this time: discharge plans noted
- Follow Up
Pharmacy will continue to follow.
Vancomycin Follow UP
- -
Patient Age: 39
Patient Sex: Male
Vancomycin Day #: 3
Indication: Skin And Soft Tissue
Requesting Provider: Dr. Granados
Pertinent Antimicrobial Allergies:
NKDA
Height / Weight:
Height 5 ft 4 in
Actual Weight 81.306 kg
Pertinent Past Medical History: BMI ~31
- Vital Signs / Lab Results
Temp Pulse Resp BP Pulse Ox
98.6 F 72 18 126/93 100
01/16/25 14:59 01/16/25 14:59 01/16/25 14:59 01/16/25 14:59 01/16/25 14:59
Lab Results - Hematology
01/14/25 01/15/25 01/16/25
06:54 08:00 07:11
WBC 4.3 L 4.8 5.3
Lab Results - Chemistry
01/14/25 01/15/25 01/16/25
06:54 08:00 07:11
BUN 12 11 14
Creatinine 0.8 0.7 0.8
Estimated Creat Clear 118 > 125 118
Microbiology Results
01/13/25 03:23 Blood Culture - Preliminary
Blood/Venous No Growth in 72 hours- Final report to follow
01/13/25 02:31 Blood Culture - Preliminary
Blood/Venous No Growth in 72 hours- Final report to follow
01/12/25 20:41 Wound Culture - Final
Elbow - Left Staph aureus MRSA
Gram Stain - Final
01/12/25 20:41 Wound Culture - Final
Finger - Right Staph aureus MRSA
Gram Stain - Final
== END 2025-01-16 17:19 | disposition home or self-care (01) | DRG 603 ==
LOC: 4 WEST ACU 23:26
PROVIDERS: Internal Medicine; Nurse Practitioner; ADMITTING PHYSICIAN Hospitalist; ATTENDING PHYSICIAN Internal Medicine; CONSULT PHYSICIAN Orthopaedic Surgery; EMERGENCY PHYSICIAN Emergency Medicine; FAMILY PHYSICIAN Family Medicine
DX: L03.114 Cellulitis of left upper limb (principal); L03.011 Cellulitis of right finger; Z82.49 Family history of ischemic heart disease and other diseases of the circulatory system; Z83.3 Family history of diabetes mellitus; B95.62 Methicillin resistant Staphylococcus aureus infection as the cause of diseases classified elsewhere
CPT/HCPCS: 73080; 73140; 80048; 80053; 83036; 85025; 85027; 85652; 86140; 87040; 87070; 87147; 87186; 87205; 96365; 96366; 99284

== ENCOUNTER 2025-02-24 16:30 | Inpatient (IN) | payer BC, SELFPAY ==
[2025-02-24 12:56] VITALS: BP 136/90
[2025-02-24 13:55] VITALS: BMI 29.8
--- NOTE | 2025-02-24 15:44 | ED.SKININJ ---
HPI-Injury
General
Chief Complaint: Skin Problem
Source: patient
Exam Limitations: none
Time Seen by Provider: 02/24/25 15:17
Nursing documentation reviewed up to this point in time: agreed with
History of Present Illness-Injury
Initial Injury comments:
The patient is a 39-year-old male who presents with an infected lesion on his left buttock, which he initially described as a 'pimple.' The lesion has been significantly worsening over the last three days. During this time, he has experienced a mild
headache, chills, but no confirmed vomiting, although he has felt nausea. The patient was previously seen at an urgent care facility and was prescribed doxycycline 100 mg twice daily starting on February 22. The patient reports that the antibiotic does
not seem to be effective.
He was admitted 01/12 to 01/16 for cellulitis with abscess found to be MRSA right third finger and left elbow
Past History
Past History
ED Past Medical History: None
ED Past Surgical History: None
Social History
Tobacco: Non-smoker
Personal: Single
Living: with roommate
Employment: Employed
Review of Systems
Review of Systems
Allergies reviewed?: Yes
All Other Systems: ROS reviewed and negative except as documented in HPI and ROS
Constitutional: Denies fever
Respiratory: Denies trouble breathing
Cardiac: Denies chest pain
ABD/GI: Reports nausea; Denies abdominal pain or vomiting
: Denies dysuria, frequency or difficulty voiding
Skin: Reports other (infection left buttock)
Phy Exam
Physical Exam
Physical Exam:
GENERAL: No acute distress. A&Ox3.
CONSTITUTIONAL: Afebrile.
EYES: clear, conjunctivae normal
ENMT: moist mucus membranes
RESPIRATORY: Regular respirations, nonlabored, lungs clear.
CARDIOVASCULAR: Regular rate and rhythm, no murmurs, no rubs.
GI: Soft, nontender, normal BS
MUSCULOSKELETAL: Moves with ease. Well perfused.
SKIN: Warm, dry, normal. Tender indurated area left mid buttock with 16 x 16 cm surrounding erythema
PSYCH: Normal mood and affect. Well kept, interactive and appropriate
NEUROLOGIC: Awake, alert and oriented. No focal neurological deficits
Course
Orders/Labs/Results
Orders:
Orders
02/24/25 Dinner
Regular
At Your Request: Full Participation
02/24/25 15:39
Piperacillin/Tazo 3.375 Gram [Zosyn] 3.375 gram in 50 ml IV NOW
02/24/25 15:58
Vancomycin [Vancocin] 2,000 mg 0.9% Sodium Chloride 500 ml [Nss] 500 ml IV NOW
02/24/25 16:03
Admit/Transfer Patient As Directed
Co-Sign Provider:
Level of Care: Inpatient admission
Assign to:: Medical/Surgical
Physician / Group: erik
Diagnosis: left buttock cellulitis/infected pimple
Reason for Hospitalization: left buttock cellulitis/infected pimple
Expected length of stay greater than two midnights?: Yes
ELOS- Estimated Length of Stay in days: 2
I certify the patient meets the requirements for IP care: Yes
PRN Pain Medication Management As Directed
May give lesser potent ordered pain med per pt: Yes
preference::
Protocol:: Medication orders for pain may be administered in a
manner that supports deferring to patient preference
when the pt is:
- Requesting an ordered lesser potent pain medication.
Least to most potent pain medications are defined
as: acetaminophen < NSAID < tramadol < opioids
(morphine, oxycodone, hydromorphone).
- Requesting a lesser dose of the same medication IF
ORDERED.
- Requesting a less intrusive route of administration
if both routes are prescribed by the provider (PO <
IV).
02/24/25 16:04
Code Status As Directed
Resuscitation Status: Full Code
02/24/25 16:20
Complete Blood Count/With Diff Urgent
Comprehensive Metabolic Panel Urgent
02/24/25 16:53
Acetaminophen [Tylenol] 650 mg PO Q4HPRN PRN
VANCOMYCIN Pharmacy to Dose [VANCOCIN Pharmacy to Dose] 1 each Pharmacy To Prepare [Call Pharmacy To Prepare] 0 ml IV PER PROTOCOL
02/24/25 16:53
Activity As Directed
Activity Level: As Tolerated
Vital Signs As Directed
Frequency: Per unit guidelines
DX Deep Vein Thrombosis Video Routine
02/24/25 20:00
Heparin 5,000 units SC Q12
02/25/25 06:00
Complete Blood Count/With Diff IN AM
Comprehensive Metabolic Panel IN AM
02/24/25 16:20
02/24/25 16:20
Vital Signs
Initial and Last Documented VS:
Initial Vital Signs
Temp Pulse Resp BP Pulse Ox
98.4 F 72 18 136/90 99
02/24/25 12:56 02/24/25 12:56 02/24/25 12:56 02/24/25 12:56 02/24/25 12:56
Last Documented Vital Signs
Temp Pulse Resp BP Pulse Ox
98.3 F 65 16 135/77 99
02/24/25 19:49 02/24/25 19:49 02/24/25 19:49 02/24/25 19:49 02/24/25 19:49
Procedures
Incision/Drainage/Joint Aspiration
Left mid buttock:
Anethesia: 1% Lidocaine with Epi
Preparation: cleaned with alcohol wipe
Type of procedure: incise and drain
Nature of site: abscess
Description of abscess: less than 3cm, involved incision and involves one area
How much fluid was obtained?: none
Fluid description: bloody
Treatment: left open for drainage, antibiotics started and bandaid applied
MDM/Problems Addressed
Differential Diagnosis Includes:
Abscess
infected cyst
cellulitis
MRSA
MDM/Problems Addressed:
The patient is a 39-year-old male who presents with an infected lesion on his left buttock, which he initially described as a 'pimple.' The lesion has been significantly worsening over the last three days. During this time, he has experienced a mild
headache, chills, but no confirmed vomiting, although he has felt nausea. The patient was previously seen at an urgent care facility and was prescribed doxycycline 100 mg twice daily starting on February 22. The patient reports that the antibiotic does
not seem to be effective.
He was admitted 01/12 to 01/16 for cellulitis with abscess found to be MRSA right third finger and left elbow
Afebrile, NAD
No significant systemic symptoms.
Attempt to I&D area revealed no purulent drainage, significant surrounding erythema
plan: Admit, IV antibiotics, failing outpatient antibiotic
Hospitalist notified of admission
CBC, CMP pending
*Pulse Oximetry
SaO2: 99
Oxygen Mode of Delivery: Room air
Patient hypoxic: not evaluated
*Critical Care Note
Total Time (30-74mins, 75-104mins- exclusive of procedures): Not Applicable
ED Attending Note
-
Portions of this chart may have been created with voice recognition software.� Occasional wrong word or��sound alike� substitutions may have occurred due to the inherent limitations of voice recognition software.
Discharge Plan
Departure
Patient Disposition: Admit
Date of Disposition: 02/24/25
Time of Disposition: 15:43
Admit to: Med/Surg
Presentation/result/management discussed w/ accepting MD/DO: Hospitalist
Condition: Good
Discharge Problem:
Cellulitis of left buttock
Interventions
Interventions:
*Risk Screen - Suicide Last Done: 02/24/25 12:56
*Neglect/Abuse Screening Last Done: 02/24/25 12:56
*ED- Fall Risk Assessment Last Done: 02/24/25 13:55
*ED COVID-19 Vaccine History Last Done: 02/24/25 13:55
*Nursing Disposition Last Done: 02/24/25 16:43
ED-Skin Assessment Last Done: 02/24/25 15:30
Discharge Date and Time
Discharge Date/Time: 02/24/25 16:43
--- NOTE | 2025-02-24 16:05 | HPS.HSE ---
Family Physician
-
Family Physician: Naseem Valdes
Chief Complaint
-
left butt infection
History of Present Illness
39-year-old male past medical history of MRSA cellulitis with abscesses of hand and left elbow, allergies, presenting with infected lesion on his left buttock. Initially described as a pimple. Lesion has been significantly worsening over the past
3 days. During this time he has had mild headache, chills and subjective fever. He has had nausea without vomiting. Patient was seen in urgent care and prescribed doxycycline twice a day starting 2 days ago. He does not believe the antibiotic
has helped.
He was admitted here for cellulitis with abscess of right hand third digit and left elbow which self drained. Cultures grew MRSA. Treated vancomycin switched to Bactrim.
He states that he has had skin abscesses since childhood.
Denies any drug use. Denies smoking or alcohol.
Medical History
Past Medical History
Past Medical History: Reports Other (MRSA cellulitis with abscesses of hand and left elbow, allergies)
Past Surgical History: Reports None
Social History
Tobacco: Non-smoker
Alcohol: None
Drug: None
Family History
Family History: Not pertinent
Allergies / Home Medications
Allergies reflects when Allergies were last updated in [email or web address].
Home Medications with original date entered in [email or web address]
Allergy/Medication List:
Allergies
Allergy/AdvReac Type Severity Reaction Status Date / Time
No Known Allergies Allergy Verified 02/24/25 12:55
Home Medications
doxycycline hyclate 100 mg capsule 100 mg PO BID 02/24/25
Review of Systems
-
Constitutional: Reports No Symptoms
EENT: Reports No Symptoms
Respiratory: Reports No Symptoms
Cardiac: Reports No Symptoms
Abdomen/GI: Reports No Symptoms
: Reports No Symptoms
Musculoskeletal: Reports No Symptoms
Skin: Reports See HPI
Neurological: Reports No Symptoms
Endocrine: Reports No Symptoms
Hematologic/Lymphatic: Reports No Symptoms
Psych: Reports No Symptoms
Physical Exam
Vital Signs
Vital Signs
Temp Pulse Resp BP Pulse Ox
98.4 F 72 18 136/90 99
02/24/25 12:56 02/24/25 12:56 02/24/25 12:56 02/24/25 12:56 02/24/25 15:46
Physical Exam
General: Well Developed, Well Nourished and No Apparent Distress
HEENT: NormoCephalic, Moist mucous membranes and Atraumatic
Respiratory: Clear
Cardiac: S1/S2 and Regular Rhythm; No Murmur or Rub
GI: Soft, Non Tender, Non Distended and Normal Bowel Sounds; No Organomegaly
Rectal: Deferred by Provider
Musculoskeletal: No Clubbing, No Cyanosis and No Edema
Skin: Other (left buttock lesion, surrounding redness ); No Rash
Neuro: Nonfocal/grossly intact
Data Reviewed
-
Lab Data: Labs Reviewed by me
Old Records: Reviewed
Impression/Plan
-
IMPRESSION:
PLAN:
# Left buttock infected pimple/cellulitis
# History of recent MRSA abscesses of upper extremities
-I&D attempted in ER without purulent drainage
- Vancomycin, Zosyn given, continue vancomycin
- May need to follow-up with immunology for workup of immunodeficiency
Full code
DVT prophylaxis�heparin
Regular diet
[2025-02-24] MEDS: ZOSYN 50 IV (16:21)
[2025-02-24 16:28] LABS: Hematocrit 40.5 % (39.0-52.0); Hemoglobin 14.0 g/dL (13.0-18.0); Mean Corp Hgb Conc. 34.6 g/dL (33.0-37.0); Mean Corpuscular Volume 84.7 fL (80.0-94.0); Nucleated Red Blood Cells % 0 % (-); Platelet Count 242 10^3/uL (130-400); Red Cell Dist. Width 12.8 % (11.5-14.5)
[2025-02-24 16:34] VITALS: BP 117/80
[2025-02-24] MEDS: VANCOCIN 540 MG IV (16:35)
[2025-02-24 17:02] LABS: ALT (SGPT) 28 U/L (0-50); AST (SGOT) 44 U/L (17-59); Albumin 5.0 g/dl (3.5-5.0); Alkaline Phosphatase 78 U/L (38-126); Blood Urea Nitrogen 13 mg/dl (9-20); Calcium 9.8 mg/dl (8.4-10.2); Carbon Dioxide 27 mmol/L (22-30); Chloride 105 mmol/L (98-107); Estimated Creatinine Clearance > 125 ml/min; Glucose 83 mg/dl (70-99); Potassium 4.3 mmol/L (3.5-5.1); Sodium 140 mmol/L (135-145); Total Protein 8.0 g/dl (6.3-8.2); eGFR > 60.00
[2025-02-24 17:11] VITALS: BP 109/65; BMI 30.3
[2025-02-24 19:49] VITALS: BP 135/77
--- NOTE | 2025-02-24 20:24 | PHA.VAN.IN ---
Assessment
- Assessment
Renal Function: Appears similar to baseline
- Previous Dosing Experience
Pt previously on vancomycin 1250mg Q12h in December 2024, but no levels were obtained.
AUC Dosing Plan
- Dosing Variables
Dosing Weight (kg): 79.9
Dosing CrCl (ml/min): 125
Vd coefficient (L/kg): 0.7
- Empiric Dosing
Initial / Loading Dose: Vancomycin 2000mg administered 02/24/25 at 1600
Maintenance Regimen: Vancomycin 750mg IV Q8h to start 02/25/25 at 0400
Estimated AUC (mcg*h/mL): 392
Estimated Peak (mcg*h/mL): 23.2
Estimated Trough (mcg/ml): 10.9
Estimated Half Life (H): 6.4
Pt's BMI ~30. Using adjusted body weight for population pharmacokinetic calculations provides estimated AUC of 464 and trough of 12.9.
- Monitoring
No levels ordered at this time: Will order levels once pt at steady state.
Pharmacokinetics Vancomycin I
- -
Patient Age: 39
Patient Sex: Male
Vancomycin Day #: 1
Indication: Skin And Soft Tissue
Requesting Provider: Dr. Iverson
Pertinent Antimicrobial Allergies:
NKA
Height / Weight:
Height 5 ft 4 in
Actual Weight 79.968 kg
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
- Vital Signs / Lab Results
Temp Pulse Resp BP Pulse Ox
98.3 F 65 16 135/77 99
02/24/25 19:49 02/24/25 19:49 02/24/25 19:49 02/24/25 19:49 02/24/25 19:49
Lab Results - Hematology
02/24/25
16:20
WBC 6.1
Lab Results - Chemistry
02/24/25
16:20
BUN 13
Creatinine 0.7
Estimated Creat Clear > 125
Albumin 5.0
[2025-02-24] MEDS: TYLENOL 650 MG PO (21:38)
[2025-02-24] MEDS: MELATONIN 5 MG PO (21:52)
[2025-02-24 23:58] VITALS: BP 106/65
[2025-02-25 03:19] VITALS: BP 112/63
[2025-02-25] MEDS: VANCOCIN 150 IV ×3 (04:11→21:35)
[2025-02-25 05:33] VITALS: BMI 30.2
[2025-02-25 06:11] LABS: Hematocrit 40.9 % (39.0-52.0); Hemoglobin 13.9 g/dL (13.0-18.0); Mean Corp Hgb Conc. 34.0 g/dL (33.0-37.0); Mean Corpuscular Volume 86.5 fL (80.0-94.0); Nucleated Red Blood Cells % 0 % (-); Platelet Count 247 10^3/uL (130-400); Red Cell Dist. Width 13.0 % (11.5-14.5)
[2025-02-25 06:40] LABS: ALT (SGPT) 23 U/L (0-50); AST (SGOT) 35 U/L (17-59); Albumin 4.4 g/dl (3.5-5.0); Alkaline Phosphatase 67 U/L (38-126); Blood Urea Nitrogen 14 mg/dl (9-20); Calcium 9.7 mg/dl (8.4-10.2); Carbon Dioxide 28 mmol/L (22-30); Chloride 105 mmol/L (98-107); Estimated Creatinine Clearance > 125 ml/min; Glucose 118 mg/dl (70-99); Potassium 4.5 mmol/L (3.5-5.1); Sodium 142 mmol/L (135-145); Total Protein 7.2 g/dl (6.3-8.2); eGFR > 60.00
[2025-02-25 07:00] VITALS: BP 127/73
--- NOTE | 2025-02-25 08:23 | W.PN.HOSP.TC ---
Today's Communication/Plan
-
;/
Assessment / Plan
Assessment / Plan
Assessment/plan
#Left gluteal cellulitis without abscess
#History of MRSA cellulitis with abscesses of hand and left elbow
-Incision and drainage was attempted in the ED without purulent drainage
-Started on vancomycin and Zosyn in the ED, but transitioned to vancomycin alone
-Given prior MRSA and location of cellulitis, vancomycin appropriate.
-outpatient therapy with doxycycline which patient states he has been using for the past 3 days with no improvement of symptoms.
-area of erythema marked and monitored for progression. Major improvement in the past 24hours noted.
-If Cellulitis continues to improve, consider d/c tomorrow on Oral Abx.
-Follow CBC, temperature curve
-Analgesics, antipyretics as needed
CODE STATUS full code
DVT prophylaxis heparin subcu
Anticipated Discharge: 24 - 48 hours
Subjective/Interval History
-
Patient seen and examined at bedside. He denies fever, chills. Reports mild pain at site of cellulitis.
Objective Data
-
Labs:
Laboratory Results
02/25/25
04:40
WBC 4.8
Hgb 13.9
Hct 40.9
Plt Count 247
Sodium 142
Potassium 4.5
Chloride 105
Carbon Dioxide 28
BUN 14
Creatinine 0.7
Glucose 118 H
Calcium 9.7
Total Bilirubin 0.6
AST 35
ALT 23
Alkaline Phosphatase 67
Vital Signs:
Vital Signs
Temp Pulse Resp BP Pulse Ox
97.6 F 60 17 127/73 99
02/25/25 07:00 02/25/25 07:00 02/25/25 07:00 02/25/25 07:00 02/25/25 07:00
I&O
02/24/25 02/25/25 02/26/25
06:59 06:59 06:59
Intake Total 600 / 600
Balance 600 / 600
Review of Systems
-
All other systems: Reviewed and negative (except as documented)
Physical Exam
-
General: Well Developed, Well Nourished and No Apparent Distress
Respiratory: Clear to Auscultation
Cardiac: Regular Rhythm and S1/S2
GI: Soft, Nontender, Nondistended and Normal Bowel Sounds
Musculoskeletal: No Edema
Skin: Other (left mid gluteal region with a localized, tender, indurated area without flactulence or drainage)
Neuro: Awake, Alert, Oriented and AO x 3
Psych: Calm
--- NOTE | 2025-02-25 08:58 | PHA.VAN.FU ---
Vancomycin Assessment / Plan
- Assessment
Renal Function: Stable
WBC's are: WNL
In the past 24 hrs, patient has been: Afebrile
- Dosing Plan
Continue: vancomycin 750 mg q8h - first dose 0400 02/25
- Monitoring Plan
No level(s) ordered at this time: consider levels after 2200 dose 02/27/25 ( after 6th dose)
- Follow Up
Pharmacy will continue to follow.
Vancomycin Follow UP
- -
Patient Age: 39
Patient Sex: Male
Vancomycin Day #: 2
Indication: Skin And Soft Tissue
Requesting Provider: Dr. Iverson
Pertinent Antimicrobial Allergies:
NKA
Height / Weight:
Height 5 ft 4 in
Actual Weight 79.787 kg
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
- Vital Signs / Lab Results
Temp Pulse Resp BP Pulse Ox
97.6 F 60 17 127/73 99
02/25/25 07:00 02/25/25 07:00 02/25/25 07:00 02/25/25 07:00 02/25/25 07:00
Lab Results - Hematology
02/24/25 02/25/25
16:20 04:40
WBC 6.1 4.8
Lab Results - Chemistry
02/24/25 02/25/25
16:20 04:40
BUN 13 14
Creatinine 0.7 0.7
Estimated Creat Clear > 125 > 125
Albumin 5.0 4.4
[2025-02-25 11:00] VITALS: BP 114/61
--- NOTE | 2025-02-25 12:33 | CM ---
Patient seen at bedside
Dx: Left buttock cellulitis/infected pimple
PMH: MRSA cellulitis with abscesses of hand and left elbow, allergies
Patient lives with and 2 daughters in an apartment, [address]
PLOF: Independent
Denies DME
PCP: Naseem Valdes
Pharmacy: [address], [place]
PLAN: Home, watch for vn needs, CM to continue to follow
[2025-02-25 15:00] VITALS: BP 155/81
[2025-02-25 19:00] VITALS: BP 116/75
[2025-02-25] MEDS: MELATONIN 5 MG PO (21:36)
[2025-02-25] MEDS: DESENEX/MITRAZOL/ZEASORB 1 APPLIC TOPICAL (21:44)
[2025-02-25 23:00] VITALS: BP 106/65
[2025-02-26 03:00] VITALS: BP 107/62
[2025-02-26] MEDS: VANCOCIN 150 IV ×3 (05:29→22:11)
--- NOTE | 2025-02-26 06:38 | W.PN.HOSP.TC ---
Addendum entered and electronically signed by Jose Raul Avina MD 02/26/25 23:17:
Attending Addendum-
I saw and evaluated the patient. I reviewed the resident�s note and agree with findings and plan as documented in the resident�s note. Sub: NAEON, feels improved. but still with pain in gluteal region. Denies diarrhea fevers chills. Full 12 point
ROS reviewed and negative except as documented Exam: Vitals reviewed in chart GEN-NAd heart RRR lungs clear abd soft LE no edema left gluteal regian- incision CDI no pus exppresed
Plan:
#Left gluteal cellulitis without abscess
#History of MRSA cellulitis with abscesses of hand and left elbow
-Incision and drainage was attempted in the ED without purulent drainage
-cont vancomycin for now
-cont wound care
-outpatient therapy with doxycycline with no improvement of symptoms.
-Major improvement in the past 24 hours noted.
-DC in am on oral abx
-wound cx with strep and GNB- await sensi
-Follow CBC, temperature curve
-Analgesics, antipyretics as needed
# Leukopenia
- CTM repeat CBC in am
# Hyperglycemia
- check HBA1c
- CTM add SSI
CODE STATUS full code
DVT prophylaxis heparin subcu
Dispo DC home in am
Time spent coordinating care, review of plan of care with resident, personally reviewed records in EMR, med rec, consults, notes, labs, radiology, d/w nursing, � 51 mins >50% of this time was devoted to counseling and coordination of care
Original Note:
Today's Communication/Plan
-
- Planning to shift to oral antibiotics
- Likely to discharge withinj 24-48hrs.
Assessment / Plan
Assessment / Plan
Assessment/plan
39 yr Male presents with
#Left gluteal cellulitis without abscess
- Continue Vancomycin IV.
- Continue Miconazole Cream topical.
-If Cellulitis continues to improve, consider d/c tomorrow on Oral Abx.
-Analgesics, antipyretics as needed
-Follow CBC, temperature curve
Wound culture:
Gram negative bacilli +
Strep Agalactecia +
- Blood glucose 134 (h) today.
- HbA1C tomorrow.
CODE STATUS full code
DVT prophylaxis heparin subcut
Anticipated Discharge: 24 - 48 hours
Subjective/Interval History
-
Date of Service: February 26, 2025
PCP: Naseem Valdes
Code: Full code
Pt feels better today, wound site is clear, no discharge. Not associated with fever, chills.
Objective Data
-
Labs:
Allergies
Allergy/AdvReac Type Severity Reaction Status Date / Time
No Known Allergies Allergy Verified 02/24/25 12:55
Lab results: WBC 4.5 10^3/ uL L
RBC: 4.69 10^6/ uL L
Vital Signs:
Vital Signs
Temp Pulse Resp BP Pulse Ox
97.7 F 53 16 107/62 100
02/26/25 03:00 02/26/25 03:00 02/26/25 03:00 02/26/25 03:00 02/26/25 03:00
I&O
02/24/25 02/25/25 02/26/25
06:59 06:59 06:59
Intake Total 600 / 600 2150 / 2150
Balance 600 / 600 2150 / 2150
Review of Systems
-
History Source: Patient
All other systems: Reviewed and negative
Constitutional: Reports No Symptoms
EENT: Reports No Symptoms Reported
Respiratory: Reports No Symptoms
Cardiac: Reports No Symptoms
Abdomen/GI: Reports No Symptoms
Genitourinary: Reports No Symptoms
Musculoskeletal: Reports No Symptoms
Skin: Reports No Symptoms
Neuro: Reports No Symptoms
Endocrine: Reports No Symptoms
Hematologic / Lymphatic: Reports No Symptoms
Allergy / Immunology: Reports No Symptoms
Physical Exam
-
General: Well Developed and Well Nourished
HEENT: PERRLA
Respiratory: Clear to Auscultation
Cardiac: Regular Rhythm
GI: Soft and Nontender
Musculoskeletal: No Clubbing
Skin: Ulcers (HEALED ULCER ON LEFT SIDE GLUTEAL REGION)
Neuro: Awake
Hematologic / Lymphatic: No Lymphadenopathy
Psych: Calm
[2025-02-26 07:00] VITALS: BP 113/71
[2025-02-26 07:06] LABS: Hematocrit 40.8 % (39.0-52.0); Hemoglobin 13.6 g/dL (13.0-18.0); Mean Corp Hgb Conc. 33.3 g/dL (33.0-37.0); Mean Corpuscular Volume 87.0 fL (80.0-94.0); Nucleated Red Blood Cells % 0 % (-); Platelet Count 244 10^3/uL (130-400); Red Cell Dist. Width 12.8 % (11.5-14.5)
[2025-02-26] MEDS: DESENEX/MITRAZOL/ZEASORB 1 APPLIC TOPICAL ×2 (07:50→20:57)
--- NOTE | 2025-02-26 09:45 | PHA.VAN.FU ---
Vancomycin Assessment / Plan
- Assessment
Renal Function: Stable
WBC's are: WNL
In the past 24 hrs, patient has been: Afebrile
- Dosing Plan
Continue: 750MG Q8
- Monitoring Plan
Peak Level: 02/27 @0100
Trough Level: 02/27 @05:30
- Follow Up
Pharmacy will continue to follow.
Vancomycin Follow UP
- -
Patient Age: 39
Patient Sex: Male
Vancomycin Day #: 3
Indication: Skin And Soft Tissue
Requesting Provider: Dr. Iverson
Pertinent Antimicrobial Allergies:
NKA
Height / Weight:
Height 5 ft 4 in
Actual Weight 79.787 kg
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
- Vital Signs / Lab Results
Temp Pulse Resp BP Pulse Ox
97.7 F 54 18 113/71 99
02/26/25 07:00 02/26/25 07:00 02/26/25 07:00 02/26/25 07:00 02/26/25 07:00
Lab Results - Hematology
02/24/25 02/25/25 02/26/25
16:20 04:40 06:33
WBC 6.1 4.8 4.5 L
Lab Results - Chemistry
02/24/25 02/25/25
16:20 04:40
BUN 13 14
Creatinine 0.7 0.7
Estimated Creat Clear > 125 > 125
Albumin 5.0 4.4
Microbiology Results
02/25/25 13:07 Gram Stain - Preliminary
Buttock
[2025-02-26 11:04] VITALS: BP 110/64
[2025-02-26 11:46] LABS: Blood Urea Nitrogen 14 mg/dl (9-20); Calcium 9.4 mg/dl (8.4-10.2); Carbon Dioxide 22 mmol/L (22-30); Chloride 108 mmol/L (98-107); Estimated Creatinine Clearance > 125 ml/min; Glucose 134 mg/dl (70-99); Magnesium 2.2 mg/dl (1.6-2.3); Potassium 4.0 mmol/L (3.5-5.1); Sodium 139 mmol/L (135-145); eGFR > 60.00
[2025-02-26 15:00] VITALS: BP 127/76
[2025-02-26 19:00] VITALS: BP 121/70
[2025-02-26] MEDS: MELATONIN 5 MG PO (22:18)
[2025-02-26 23:00] VITALS: BP 127/73
[2025-02-27 03:00] VITALS: BP 137/69
[2025-02-27] MEDS: VANCOCIN 150 IV (06:26)
[2025-02-27 07:00] VITALS: BP 104/59
[2025-02-27] MEDS: DESENEX/MITRAZOL/ZEASORB 1 APPLIC TOPICAL (07:43)
--- NOTE | 2025-02-27 08:16 | PHA.VAN.FU ---
Vancomycin Assessment / Plan
- Assessment
Renal Function: No New Labs Today
In the past 24 hrs, patient has been: Afebrile
- Assessment - Therapeutic Drug Monitoring
Extrapolated Cmax (mcg/mL): 17.9
Peak level was drawn: Appropriately (drawn ~2.8H after end of previous infusion)
Extrapolated Cmin (mcg/mL): 8.3
Trough Drawn: Appropriately
Levels were drawn: At steady state (levels drawn after 6th maintenance dose)
Calculated AUC (mcg*h/mL): 301
Calculated ke: 0.11
Calculated half life (H): 6.3
Calculated Vd (L): 68 (0.85 L/kg)
Calculated Vanc CL (ml/min): 124
- Dosing Plan
Adjust Regimen to: Vanc 1000mg Q8H starting at 1400
New Regimen Predicts: AUC (424), Peak (25.2), Trough (11.7)
- Monitoring Plan
No level(s) ordered at this time: consider repeat levels in next several days
- Follow Up
Pharmacy will continue to follow.
Vancomycin Follow UP
- -
Patient Age: 39
Patient Sex: Male
Vancomycin Day #: 4
Indication: Skin And Soft Tissue
Requesting Provider: Dr. Iverson
Pertinent Antimicrobial Allergies:
NKDA
Height / Weight:
Height 5 ft 4 in
Actual Weight 79.787 kg
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
- Vital Signs / Lab Results
Temp Pulse Resp BP Pulse Ox
98.8 F 59 19 104/59 96
02/27/25 07:00 02/27/25 07:00 02/27/25 07:00 02/27/25 07:00 02/27/25 07:00
Lab Results - Hematology
02/24/25 02/25/25 02/26/25
16:20 04:40 06:33
WBC 6.1 4.8 4.5 L
Lab Results - Chemistry
02/24/25 02/25/25 02/26/25
16:20 04:40 06:33
BUN 13 14 14
Creatinine 0.7 0.7 0.7
Estimated Creat Clear > 125 > 125 > 125
Albumin 5.0 4.4
Microbiology Results
02/25/25 13:07 Wound Culture - Preliminary
Buttock Gram negative bacilli
Streptococcus agalactiae
Gram Stain - Preliminary
Therapeutic Drug Monitoring
Vancomycin Peak 13.2 ug/ml (18-26) L 02/27/25 01:57
Vancomycin Trough 9.3 ug/ml (5-20) 02/27/25 05:08
[2025-02-27 09:03] LABS: Glycohemoglobin (HgbA1c) 5.2 % (4.0-5.6)
[2025-02-27 11:00] VITALS: BP 135/85
[2025-02-27] MEDS: VANCOCIN 200 IV (13:16)
[2025-02-27 15:00] VITALS: BP 130/77
--- NOTE | 2025-02-27 15:50 | CM ---
Pt had questions about insurance billing, stating he was hospitalized in the past and his bill was 'huge'. Pt provided [facility] the phone number for the business office to contact to discuss and/or ask questions about his coverage.
Pt cleared for discharge home with no needs.
--- NOTE | 2025-02-27 17:22 | W.DCSUMMARY ---
Addendum entered and electronically signed by Jose Raul Avina MD 02/27/25 22:30:
Read, reviewed, and agree. See same day progress note for additional details.
Myke Avina MD
Original Note:
Documented by User: Augustus Pereyra MD, Resident 02/27/25 20:41
Discharge Summary
Discharge Data
Date of Admission: 02/24/25
Date of Discharge: 02/27/25
-
Pending Results: No
Hospital Course
Discharging Physician : Jose Raul Govea MD
Lavinia Goodwin
Disposition : Home
Primary care physician : Dr Naseem Valdes.
Principal Discharge diagnosis : Cellulitis at Left Gluteal region.
Chronic Discharge diagnosis : MRSA cellulitis with abscesses of hand and left elbow, allergies
Hospital Course : 39-year-old male presented to the ER with an infected lesion on his left buttock, which he initially described as a 'pimple.' The lesion was significantly worsened associated with a mild headache, chills, nausea but no confirmed
vomiting. The patient was previously seen at an urgent care facility and prescribed doxycycline 100 mg twice daily was not effective.
Procedure Incision/Drainage/Joint Aspiration done at the ER at 02/24/25:
Left mid gluteal region:
incision and drainage done and started on Vancomycin HCl 1G in 200ml, Miconazole was administered.
patient was stable at the course of the admission. Wound culture:Gram negative bacilli + Strep Agalactecia +
Patient discharged with oral antibiotics Augmentin 875MG bid for 7 days. With wound care management advise.
Discharge Plan
-
Patient Disposition: Home (Routine Discharge)
Discharge Diagnosis/Procedures: Left gluteal cellulitis without abscess, Cellulitis of right finger upper limb, leukopenia.
Diet: Regular
Activity: No restrictions
Bathing Restrictions: After dressing removed
Wound Care: Clean the wound with mild soap and water.
change the dressing if needed.
keep the wound clean and dry.
Monitor for pain, discharge, redness.
Referrals:
Naseem Valdes DO [Family Provider, [facility]]
Prescriptions:
New
amoxicillin-pot clavulanate 875-125 mg tablet
1 tab PO BID 7 Days Qty: 14 0RF
Discontinued
doxycycline hyclate 100 mg Capsule
100 mg PO BID
Rx Instructions:
for 10 days starting 02/22/25
Discharge Orders:
Discharge Patient (As Directed); Ordered 02/27/25
Ordered By: Augustus Pereyra
Discharge Date and Time
Discharge Date/Time: 02/27/25 15:58
Print Language: PANAMANIAN

Documented by User: Jose Raul Avina MD 02/27/25 22:25
Discharge Summary
Discharge Data
Date of Admission: 02/24/25
Date of Discharge: 02/27/25
Discharge Plan
-
Patient Disposition: Home (Routine Discharge)
Discharge Diagnosis/Procedures: Left gluteal cellulitis without abscess, Cellulitis of right finger upper limb, leukopenia.
Diet: Regular
Activity: No restrictions
Bathing Restrictions: After dressing removed
Wound Care: Clean the wound with mild soap and water.
change the dressing if needed.
keep the wound clean and dry.
Monitor for pain, discharge, redness.
Referrals:
Naseem Valdes DO [[facility], [facility]]
Prescriptions:
New
amoxicillin-pot clavulanate 875-125 mg tablet
1 tab PO BID 7 Days Qty: 14 0RF
Discontinued
doxycycline hyclate 100 mg Capsule
100 mg PO BID
Rx Instructions:
for 10 days starting 02/22/25
Discharge Orders:
Discharge Patient (As Directed); Ordered 02/27/25
Ordered By: Augustus Pereyra
Discharge Date and Time
Discharge Date/Time: 02/27/25 15:58
Print Language: PANAMANIAN
--- NOTE | 2025-02-27 17:22 | W.PN.HOSP.TC ---
Addendum entered and electronically signed by Jose Raul Avina MD 02/27/25 22:29:
Attending Addendum-
I saw and evaluated the patient. I reviewed the resident�s note and agree with findings and plan as documented in the resident�s note. Sub: NAEON, mild pain in gluteal region. wants to go home. Denies diarrhea fevers chills. Full 12 point ROS
reviewed and negative except as documented Exam: Vitals reviewed in chart GEN-NAd heart RRR lungs clear abd soft LE no edema left gluteal region- incision CDI no pus expressed
Plan:
#Left gluteal cellulitis without abscess
#History of MRSA cellulitis with abscesses of hand and left elbow
-Incision and drainage was attempted in the ED without purulent drainage
-DC vanco->augmentin on DC
-cont wound care
-wound cx with MSSA ecoli and GNB-sensi resulted
# Leukopenia
- f/u as OP
# Hyperglycemia
- [id number]
- CTM
CODE STATUS full code
DVT prophylaxis heparin subcu
Dispo DC home
Time spent coordinating care, DC planning, review of DC plan of care with resident, transition of care, review of records, med rec/scripts sent electronically, consults, notes, d/w consultants, nursing, and CM� 31 mins >50% of this time was devoted
to counseling and coordination of care
Original Note:
Today's Communication/Plan
-
Discharge the patient with Oral Augmentin 875 mg BID for 7 days.
Clean the wound with mild soap and water.
change the dressing if needed.
keep the wound clean and dry.
Monitor for pain, discharge, redness.
Assessment / Plan
Assessment / Plan
Assessment/plan
39 yr Male presents with
#Left gluteal cellulitis without abscess
- Discontinue Vancomycin IV.
- Continue Miconazole Cream topical.
-Planned to discharge on Oral Augmentin 875mg BID for 7 days..
-Analgesics, antipyretics as needed
-Follow up with PCP in future.
-Wound care management advise given:
Clean the wound with mild soap and water.
change the dressing if needed.
keep the wound clean and dry.
Monitor for pain, discharge, redness.
CODE STATUS full code
DVT prophylaxis heparin subcut
Anticipated Discharge: Today
Subjective/Interval History
-
Date of Service: February 27, 2025
39 yr Male with left gluteal Cellulitis feeling better today. No concerns for fever, wound discharge, pain.
Objective Data
-
Vital Signs:
Vital Signs
Temp Pulse Resp BP Pulse Ox
99.1 F 67 19 130/77 98
02/27/25 15:00 02/27/25 15:00 02/27/25 15:00 02/27/25 15:00 02/27/25 15:00
I&O
02/26/25 02/27/25 02/28/25
06:59 06:59 06:59
Intake Total 2149 480 / 480
Balance 2149 480 / 480
Review of Systems
-
History Source: Patient
Constitutional: Reports No Symptoms
EENT: Reports No Symptoms Reported
Respiratory: Reports No Symptoms
Cardiac: Reports No Symptoms
Abdomen/GI: Reports No Symptoms
Breast: Reports No Symptoms
Genitourinary: Reports No Symptoms
Musculoskeletal: Reports No Symptoms
Skin: Reports No Symptoms
Neuro: Reports No Symptoms
Endocrine: Reports No Symptoms
Hematologic / Lymphatic: Reports No Symptoms
Allergy / Immunology: Reports No Symptoms
Physical Exam
-
General: No Apparent Distress
Respiratory: Clear to Auscultation
Cardiac: Regular Rhythm
GI: Soft and Nontender
Musculoskeletal: No Clubbing, No Cyanosis and No Edema
Skin: Warm
Neuro: Awake
Hematologic / Lymphatic: No Lymphadenopathy
Psych: Calm
== END 2025-02-27 15:58 | disposition home or self-care (01) | DRG 603 ==
LOC: 3 WEST ACU 16:30
PROVIDERS: Registered Nurse; Student in an Organized Health Care Education/Training Program; ADMITTING PHYSICIAN Hospitalist; ATTENDING PHYSICIAN Family Medicine; EMERGENCY PHYSICIAN Student in an Organized Health Care Education/Training Program; FAMILY PHYSICIAN Family Medicine
DX: L03.317 Cellulitis of buttock (principal); L02.511 Cutaneous abscess of right hand; L02.414 Cutaneous abscess of left upper limb; B95.62 Methicillin resistant Staphylococcus aureus infection as the cause of diseases classified elsewhere; R73.9 Hyperglycemia, unspecified; D72.819 Decreased white blood cell count, unspecified
CPT/HCPCS: 10060; 80048; 80053; 80202; 83036; 83735; 85025; 87070; 87077; 87147; 87186; 87205; 96365; 96375; 99284